=== PATIENT | female | born 1985 | race Caucasian/White ===

== ENCOUNTER 2024-02-29 00:26 | Emergency (ER) | payer MEDICAID ==
[~2024-02-29] VITALS: Ht 167.6 cm; Wt 89.0 kg
[2024-02-29] MEDS: SODIUM CHLORIDE 0.9% 1,000 ML IV ONE (01:39)
[2024-02-29] MEDS: MORPHINE SULFATE 4 MG/ML INJ (FOR IV/IM USE) IV ONE (01:43)
[2024-02-29] MEDS: ONDANSETRON HCL 4MG/2ML INJ IV NR (01:43)
[2024-02-29] MEDS: MORPHINE SULFATE 4 MG/ML INJ (FOR IV/IM USE) IV STA (02:50)
[2024-02-29] MEDS: ONDANSETRON HCL 4MG/2ML INJ IV STA (02:50)
[2024-02-29] MEDS: ONDANSETRON HCL 4MG/2ML INJ IV ONE (02:53)
[2024-02-29] MEDS: ETOMIDATE 2MG/ML 10ML VIAL IV ONE (03:00)
[2024-02-29 04:10] VITALS: O2SAT 100
[2024-02-29] MEDS ORDERED: HYDR-4001 MT (05:10)
[2024-02-29] MEDS ORDERED: IBUP-2028 MT (05:10)
[2024-02-29 06:07] VITALS: BP 112/63; PULSE 78; RESP 13; TEMP 98.4
== END 2024-02-29 06:12 | disposition home or self-care (01) ==
LOC: ER 00:26
DX: S82.251A Displaced comminuted fracture of shaft of right tibia, initial encounter for closed fracture (principal); S93.04XA Dislocation of right ankle joint, initial encounter; W01.0XXA Fall on same level from slipping, tripping and stumbling without subsequent striking against object, initial encounter; Y93.89 Activity, other specified; Y92.89 Other specified places as the place of occurrence of the external cause; Y99.8 Other external cause status
CPT/HCPCS: 73610; 27788; 96361; 96374; 96375; 99152; 99285; J3490; J2405; J2270; J7030; Z7610 ×3